=== PATIENT | male | born 1960 | race Caucasian/White ===

== ENCOUNTER → 2020-04-21 15:09 | Outpatient (CLI) | payer OTHER ==
[2020-04-21 15:32] LABS: BASOPHILS 0.4 % (0-2); EOSINOPHILS 3.1 % (0-7); HEMATOCRIT 48.5 % (42.0-54.0); HEMOGLOBIN 15.7 g/dL (13.5-17.5); LYMPHOCYTE ABS# 1.92 10x3/uL (1.32-3.57); MCHC 32.4 g/dL (31.0-37.0); MCV 89.5 fL (80.0-100.0); MEAN PLATELET VOLUME 9.7 fL (7.4-10.4); MONOCYTES 8.6 % (2-11); NEUTROPHIL ABS# 4.83 10x3/uL (1.78-5.38); NEUTROPHILS 62.9 % (40-80); PLATELET COUNT 235 10x3/uL (130-400); RBC 5.42 10x6/uL (4.20-6.10); RDW 13.2 % (11.5-14.5); WBC 7.7 10x3/uL (4.8-10.8)
[2020-04-21 16:16] LABS: ANION GAP 10.3 mmol/L (8-16); BILIRUBIN - TOTAL 0.61 mg/dL (0.2-1.3); CALCIUM 8.7 mg/dL (8.5-10.1); CARBON DIOXIDE 28.6 mmol/L (21.0-32.0); CHOL - HDL RATIO 3.7 ratio (2.3-4.9); CREATININE - SERUM 1.1 mg/dL (0.6-1.3); LDL-HDL RATIO 2.6 ratio (1.5-3.5); POTASSIUM - SERUM 3.9 mmol/L (3.5-5.1); PROTEIN - SERUM 7.3 g/dL (6.4-8.2); THYROID STIMULATING HORMONE 4.53 uIU/mL (0.36-3.74)
[2020-04-21 16:19] LABS: SCREENING PSA (YEARLY) 0.5 ng/mL (0.00-4.00)
== END | disposition home or self-care (01) ==
LOC: D.LAB 15:09
PROVIDERS: ATTEND Family Medicine
DX: Z00.00 Encounter for general adult medical examination without abnormal findings (principal); E56.8 Deficiency of other vitamins; I10 Essential (primary) hypertension; E29.1 Testicular hypofunction